=== PATIENT | female | born 1940 | race Caucasian/White ===

== ENCOUNTER 2019-08-21 07:22 | Day surgery (SDC) | payer MEDICARE, OTHER ==
[~2019-08-21 07:22] MED LIST: Midazolam 1 MG/ML 2 ML SDV ONE; fentaNYL 100 MCG/2 ML SDV ONE
[2019-08-21] MEDS ORDERED: Midazolam 1 MG/ML 2 ML SDV IV ONE ×7 (07:23→08:39)
[2019-08-21] MEDS ORDERED: fentaNYL 100 MCG/2 ML SDV IV ONE ×5 (07:23→08:41)
[2019-08-21] MEDS ORDERED: Dextrose 5%-0.45% NaCl 1,000 ML IV SCH (07:30)
--- NOTE | 2019-08-21 10:15 | OR ---
DATE: 08/21/2019 PREOPERATIVE DIAGNOSIS: Screening colonoscopy. POSTOPERATIVE DIAGNOSIS: Screening colonoscopy. PROCEDURE: Total colonoscopy. ANESTHESIA: Conscious sedation with IV Versed and fentanyl. SPECIMEN: None. OPERATIVE FINDINGS: Extensive left-sided diverticulosis, otherwise normal. RECOMMENDATION: Followup screening colonoscopy for symptoms only. INDICATION FOR PROCEDURE: This 79-year-old female had a colonoscopy over 10 years ago that was reported as normal. She has some intermittent abdominal pain, but mostly is here for screening colonoscopy. PROCEDURE IN DETAIL: After adequate preparation, a colonoscope was inserted into the rectum. This was quite difficult to pass through the left side of the colon secondary to extensive diverticulosis. This extends all the way from the rectosigmoid junction to past the hepatic flexure. The scope was able to be advanced all the way to the cecum, however. Confirmation of the cecum was made by visualization of the ileocecal valve and palpation in the right lower quadrant. The bowel prep was very good. On withdrawal of the scope, no other abnormalities were noted except for the diverticulosis. Air was suctioned from the colon and the scope removed. [facility] /[id number]
== END 2019-08-21 10:36 | disposition home or self-care (01) ==
LOC: DL.ENDO 07:22
PROVIDERS: ATTEND Surgery
DX: Z12.11 Encounter for screening for malignant neoplasm of colon (principal); K57.30 Diverticulosis of large intestine without perforation or abscess without bleeding; I10 Essential (primary) hypertension; J45.909 Unspecified asthma, uncomplicated; M15.9 Polyosteoarthritis, unspecified; Z88.1 Allergy status to other antibiotic agents; Z88.5 Allergy status to narcotic agent; Z87.19 Personal history of other diseases of the digestive system
CPT/HCPCS: G0121; J7042; J2250; J3010

== ENCOUNTER 2020-10-30 11:42 | Emergency (ER) | payer MEDICARE, OTHER ==
--- NOTE | 2020-10-30 12:46 | EDM.PDOC ---
ED HPI GENERAL MEDICAL PROBLEM - General Chief Complaint: Respiratory Problem Stated Complaint: NOT FEELING WELL, TROUBLE BREATHING Time Seen by Provider: 10/30/20 12:25 Source of Information: Reports: Patient History Limitations: Reports: No Limitations - History of Present Illness INITIAL COMMENTS - FREE TEXT/NARRATIVE: This 80 yo female patient reports to the ED due to intermittent episodes of increased shortness of breath. The patient report she does have a history of asthma, but has noticed her current symptoms. The patient reports today has been worse than previous, but she also had increased shortness of breath on Monday of this week. The patient reports she has used her inhaler with little to no symptom improvement. Onset: Today Duration: Intermittent Location: Reports: Chest Quality: Reports: Other Severity: Moderate Improves with: Reports: None Worsens with: Reports: None Context: Reports: Other Associated Symptoms: Reports: Shortness of Breath Treatments POT PULLER: Reports: Other (see below) Other Treatments POT PULLER: inhaler - Related Data Allergies Allergy/AdvReac Type Severity Reaction Status Date / Time doxycycline AdvReac Nausea Verified 10/30/20 12:08 levofloxacin [From Levaquin] AdvReac Nausea Verified 10/30/20 12:08 meperidine HCl [From Demerol] AdvReac Nausea and Verified 10/30/20 12:08 Vomiting moxifloxacin HCl AdvReac Nausea Verified 10/30/20 12:08 [From Avelox] oxycodone AdvReac Nausea and Verified 10/30/20 12:08 Vomiting Home Meds: Home Meds Fluticasone Propion/Salmeterol [Advair 250-50 Diskus] 1 inh INH DAILY PRN 05/16/18 [History] Omeprazole 20 mg PO DAILY 05/16/18 [History] atorvaSTATin [Lipitor] 20 mg PO DAILY 05/16/18 [History] hydroCHLOROthiazide [Hydrochlorothiazide] 25 mg PO DAILY 05/16/18 [History] Multivitamin [Multi-Day Vitamins] 1 each PO DAILY 08/19/19 [History] Calcium Carbonate [Calcium] 500 mg PO DAILY 10/30/20 [History] Cholecalciferol (Vitamin D3) [Vitamin D] 10,000 unit PO DAILY 10/30/20 [History] Fluticasone Propion/Salmeterol [Advair 250-50 Diskus] 1 puff INH BID 10/30/20 [History] Past Medical History HEENT History: Reports: Impaired Vision Cardiovascular History: Reports: High Cholesterol, Hypertension Respiratory History: Reports: Asthma Gastrointestinal History: Reports: Colon Polyp, GERD, GI Bleed, PUD Genitourinary History: Reports: None 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 , , 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 Musculoskeletal History: Reports: Arthritis, Fracture Neurological History: Reports: None Psychiatric History: Reports: None Endocrine/Metabolic History: Reports: Obesity/BMI 30+ Hematologic History: Reports: Anemia Immunologic History: Reports: None Oncologic (Cancer) History: Reports: None Dermatologic History: Reports: None - Infectious Disease History Infectious Disease History: Reports: Chicken Pox, Mumps - Past Surgical History Head Surgeries/Procedures: Reports: None HEENT Surgical History: Reports: Cataract Surgery Cardiovascular Surgical History: Reports: None Respiratory Surgical History: Reports: None GI Surgical History: Reports: Appendectomy, Colonoscopy, EGD, Polypectomy Female Surgical History: Reports: D&C Endocrine Surgical History: Reports: None Neurological Surgical History: Reports: None Musculoskeletal Surgical History: Reports: Knee Replacement Other Musculoskeletal Surgeries/Procedures:: Carpal tunnel both hands. Bunion both feet. (surgery) Oncologic Surgical History: Reports: None Dermatological Surgical History: Reports: None Social & Family History - Family History Family Medical History: No Pertinent Family History - Tobacco Use Tobacco Use Status *Q: Never Tobacco User - Caffeine Use Caffeine Use: Reports: Coffee Other Caffeine Use: AVERAGE OF 5-6 CUPS DAILY Caffeine Use Comment: 5 cups of coffee/day - Recreational Drug Use Recreational Drug Use: No ED ROS GENERAL - Review of Systems Review Of Systems: Comprehensive ROS is negative, except as noted in HPI. ED EXAM, GENERAL - Physical Exam Exam: See Below Exam Limited By: No Limitations General Appearance: Alert, WD/WN, Mild Distress Eye Exam: Bilateral Eye: EOMI, Normal Inspection, PERRL Ears: Normal External Exam, Normal Canal, Hearing Grossly Normal, Normal TMs Nose: Normal Inspection, Normal Mucosa, No Blood Throat/Mouth: Normal Inspection, Normal Lips, Normal Teeth, Normal Gums, Normal Oropharynx, Normal Voice, No Airway Compromise Head: Atraumatic, Normocephalic Neck: Normal Inspection, Supple, Non-Tender, Full Range of Motion Respiratory/Chest: Decreased Breath Sounds (bilateral lower lobes) Cardiovascular: Normal Peripheral Pulses, Regular Rate, Rhythm, No Edema, No Gallop, No JVD, No Murmur, No Rub GI/Abdominal: Normal Bowel Sounds, Soft, Non-Tender, No Organomegaly, No Distention, No Abnormal Bruit, No Mass (Female) Exam: Deferred Rectal (Female) Exam: Deferred Back Exam: Normal Inspection, Full Range of Motion, NT Extremities: Normal Inspection, Normal Range of Motion, Non-Tender, Normal Capillary Refill, No Pedal Edema Neurological: Alert, Oriented, CN II-XII Intact, Normal Cognition, Normal Gait, Normal Reflexes, No Motor/Sensory Deficits Psychiatric: Normal Affect Skin Exam: Warm, Dry, Intact, Normal Color, No Rash Lymphatic: No Adenopathy Course - Vital Signs Last Recorded V/S: Last Vital Signs Temp 37.1 C 10/30/20 11:50 Pulse 119 H 10/30/20 11:50 Resp 16 10/30/20 11:50 BP 144/103 H 10/30/20 11:50 Pulse Ox 98 10/30/20 11:50 - Orders/Labs/Meds Orders: Active Orders 24 hr Category Date Time Status EKG Documentation Completion [RC] STAT Care 10/30/20 12:27 Active CULTURE BLOOD [BC] Stat Lab 10/30/20 12:40 Received cefTRIAXone [Rocephin] 1 gm Med 10/30/20 14:43 Ordered Sodium Chloride 0.9% [Normal Saline] 50 ml IV ONETIME Medication Orders Ceftriaxone Sodium 1 gm/ (Sodium Chloride) 50 mls @ 100 mls/hr IV ONETIME ONE Stop: 10/30/20 15:12 Labs: Laboratory Tests 10/30/20 10/30/20 10/30/20 Range/Units 12:32 12:40 12:40 WBC 7.4 (5.0-10.0) 10^3/uL RBC 5.23 (4.2-5.4) 10^6/uL Hgb 15.7 (12.0-16.0) g/dL Hct 45.8 (37.0-47.0) % MCV 87.6 (80-100) fL MCH 30.0 (27.0-34.0) pg MCHC 34.3 (33.0-35.0) g/dL Plt Count 200 (150-450) 10^3/uL Neut % (Auto) 73.3 (42.2-75.2) % Lymph % (Auto) 15.9 L (20.5-50.1) % [place] % (Auto) 6.4 (2-8) % Eos % (Auto) 3.7 H (1.0-3.0) % Baso % (Auto) 0.7 (0.0-1.0) % Sodium 139 (136-145) mmol/L Potassium 4.1 (3.5-5.1) mmol/L Chloride 101 (98-107) mmol/L Carbon Dioxide 28 (21-32) mmol/L Anion Gap 14.1 H (7-13) mEq/L BUN 16 (7-18) mg/dL Creatinine 0.85 (0.55-1.02) mg/dL Est Cr Clr Drug Dosing 45.37 mL/min Estimated GFR (MDRD) > 60 BUN/Creatinine Ratio 18.8 (No establ ref range) Glucose 106 H (74-99) mg/dL Lactic Acid (0.4-2.0) mmol/L Calcium 9.9 (8.5-10.1) mg/dL Total Bilirubin 1.2 H (0.2-1.0) mg/dL AST 21 (15-37) U/L ALT 27 (14-59) U/L Alkaline Phosphatase 73 (46-116) U/L Troponin I < 0.017 (0.000-0.056) ng/mL Total Protein 7.2 (6.4-8.2) g/dL Albumin 4.3 (3.4-5.0) g/dL Globulin 2.9 Albumin/Globulin Ratio 1.5 Influenza Type A RNA Negative (NEGATIVE) Influenza Type B RNA Negative (NEGATIVE) SARS-CoV-2 RNA (EUFEMIA) Negative (NEGATIVE) 10/30/20 Range/Units 12:40 WBC (5.0-10.0) 10^3/uL RBC (4.2-5.4) 10^6/uL Hgb (12.0-16.0) g/dL Hct (37.0-47.0) % MCV (80-100) fL MCH (27.0-34.0) pg MCHC (33.0-35.0) g/dL Plt Count (150-450) 10^3/uL Neut % (Auto) (42.2-75.2) % Lymph % (Auto) (20.5-50.1) % [place] % (Auto) (2-8) % Eos % (Auto) (1.0-3.0) % Baso % (Auto) (0.0-1.0) % Sodium (136-145) mmol/L Potassium (3.5-5.1) mmol/L Chloride (98-107) mmol/L Carbon Dioxide (21-32) mmol/L Anion Gap (7-13) mEq/L BUN (7-18) mg/dL Creatinine (0.55-1.02) mg/dL Est Cr Clr Drug Dosing mL/min Estimated GFR (MDRD) BUN/Creatinine Ratio (No establ ref range) Glucose (74-99) mg/dL Lactic Acid 1.1 (0.4-2.0) mmol/L Calcium (8.5-10.1) mg/dL Total Bilirubin (0.2-1.0) mg/dL AST (15-37) U/L ALT (14-59) U/L Alkaline Phosphatase (46-116) U/L Troponin I (0.000-0.056) ng/mL Total Protein (6.4-8.2) g/dL Albumin (3.4-5.0) g/dL Globulin Albumin/Globulin Ratio Influenza Type A RNA (NEGATIVE) Influenza Type B RNA (NEGATIVE) SARS-CoV-2 RNA (EUFEMIA) (NEGATIVE) Meds: Medications Generic Name Dose Route Start Last Admin Trade Name Freq PRN Reason Stop Dose Admin Ceftriaxone Sodium 1 gm/ 50 mls @ 100 mls/hr 10/30/20 14:43 Sodium Chloride IV 10/30/20 15:12 ONETIME ONE Discontinued Medications Generic Name Dose Route Start Last Admin Trade Name Freq PRN Reason Stop Dose Admin Methylprednisolone Sodium Succinate 125 mg 10/30/20 14:43 Solu-Medrol IVPUSH 10/30/20 14:44 ONETIME ONE Departure - Departure Time of Disposition: 14:49 Disposition: Home, Self-Care 01 Condition: Fair Clinical Impression: Asthma exacerbation Qualifiers: Asthma severity: moderate Asthma persistence: persistent Qualified Code(s): J45.41 - Moderate persistent asthma with (acute) exacerbation - Discharge Information *PRESCRIPTION DRUG MONITORING PROGRAM REVIEWED*: Not Applicable *COPY OF PRESCRIPTION DRUG MONITORING REPORT IN PATIENT PRICE: Not Applicable Instructions: Asthma, Adult, [id number] Forms: ED Department Discharge Care Plan Goals: The patient was advised of the examination, lab and x-ray results during the visit. The patient was given an IV dose of Solumedrol (125 mg) and IV Rocephin ( 1 gram) while in the ED. The patient was discharged with scripts for Azithromycin (250 mg) #6 to take 2 by mouth on day 1 (10/31/20) and 1 by mouth on days 2-5 and Prednisone (20 mg) #10 to take 2 by mouth daily for 5 days. The patient was encouraged to continue to take her medications as prescribed. If the patient has any additional symptoms or concerns, the patient should either return to the emergency department or visit her primary care facility. Sepsis Event Note (ED) - Evaluation Sepsis Screening Result: No Definite Risk - Focused Exam Vital Signs: Vital Signs Temp Pulse Resp BP Pulse Ox 10/30/20 11:50 37.1 C 119 H 16 144/103 H 98 - My Orders Last 24 Hours: My Active Orders 10/30/20 12:27 EKG Documentation Completion [RC] STAT 10/30/20 12:40 CULTURE BLOOD [BC] Stat 10/30/20 14:43 cefTRIAXone [Rocephin] 1 gm Sodium Chloride 0.9% [Normal Saline] 50 ml IV ONETIME - Assessment/Plan Last 24 Hours: My Active Orders 10/30/20 12:27 EKG Documentation Completion [RC] STAT 10/30/20 12:40 CULTURE BLOOD [BC] Stat 10/30/20 14:43 cefTRIAXone [Rocephin] 1 gm Sodium Chloride 0.9% [Normal Saline] 50 ml IV ONETIME
[2020-10-30 13:10] LABS: ANION GAP 14.1 mEq/L (7-13); CHLORIDE,CL 101 mmol/L (98-107); SODIUM,NA 139 mmol/L (136-145)
[2020-10-30 13:33] LABS: CORONAVIRUS COVID-19 NAA NEGATIVE (NEGATIVE)
--- NOTE | 2020-10-30 14:28 | CR ---
EXAMINATION: Chest 2V SEX: Female AGE: 80 years CLINICAL HISTORY: 80-year-old female complaining of shortness of breath. CT exam February 2015 for cough and chest pain revealed "worrisome density LLL; peribronchial cuffing centrally; platelike atelectasis RLL." Interpretation: 1. Kyphoscoliosis; multilevel disc degeneration; reactive sclerosis and hypertrophic spondylosis. 2. Cardiac silhouette unchanged since scanogram CT 24 feb 2015. No increase in size or change in configuration. No new pulmonary vascular congestion, cephalization of flow, alveolar edema or dependent pleural fluid accumulation. 3. Chronic atelectasis/fibrosis left lung base. 4. No new lung mass or hilar lymphadenopathy. 5. No new focal lobar alveolar consolidation (infiltrate/atelectasis), abnormal air bronchograms, or peripheral "groundglass" lung densities. 6. No pneumothorax or pneumomediastinum. 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 CONCLUSION: Chronic atelectasis/fibrosis left base. Abnormal spine. No acute new cardiopulmonary abnormality since comparison exam February 2015.
[2020-10-30] MEDS ORDERED: cefTRIAXone 1 GM in Sodium Chloride 0.9% 50 ML IV ONE (14:43)
[2020-10-30] MEDS ORDERED: methylPREDNISolone Sodium Succinate 125 MG/2 ML SDV IVPUSH ONE (14:43)
== END 2020-10-30 16:10 | disposition home or self-care (01) ==
LOC: DL.ED 11:42
DX: J45.41 Moderate persistent asthma with (acute) exacerbation (principal); E78.00 Pure hypercholesterolemia, unspecified; I10 Essential (primary) hypertension; J45.909 Unspecified asthma, uncomplicated; K21.9 Gastro-esophageal reflux disease without esophagitis; E66.9 Obesity, unspecified; Z79.899 Other long term (current) drug therapy; Z68.24 Body mass index [BMI] 24.0-24.9, adult; Z20.822 Contact with and (suspected) exposure to COVID-19; Z88.1 Allergy status to other antibiotic agents; Z88.5 Allergy status to narcotic agent
CPT/HCPCS: 0240U; 36415; 71046; 80053; 83605; 84484; 85025; 87040; 93005; 96365; 96375; 99283; 99285; J0696; J2930